=== PATIENT | male | born 1965 | race African-American/Black ===

== ENCOUNTER 2017-03-13 09:30 | Inpatient (IN) | payer MEDICAID, OTHER ==
[~2017-03-13] VITALS: Ht 182.9 cm; Wt 118.5 kg
[~2017-03-13 09:30] MED LIST: ASPI-664 PO; BENA20TA48 PO; LANT3I SC
[2017-03-13] MEDS ORDERED: ASPIRIN 81 MG TAB PO STA (09:33)
[2017-03-13] MEDS ORDERED: ONDANSETRON 4 MG INJ IV STA (09:58)
[2017-03-13] MEDS ORDERED: morphine 4 MG/ML VIAL IV STA (09:58)
[2017-03-13 10:08] VITALS: TEMP 98.6
[2017-03-13 10:19] LABS: ADD SCAN DIFF NO
--- NOTE | 2017-03-13 10:21 | RADRPT ---
PROCEDURE: Chest x-ray CLINICAL INDICATION: Chest pain TECHNIQUE: Chest single view COMPARISON: None FINDINGS: The heart is normal in size. The pulmonary vessels are normal in caliber. The lungs are clear. Th e costophrenic angles are sharp. The visualized bony thorax is unremarkable. IMPRESSION: No acute cardiopulmonary disease. RPTAT: HH .Jere Johnson MD, Date Time Electronically viewed and signed by .Jere Johnson MD, MD on 03/13/2017 10:20 .W/
[2017-03-13 10:24] LABS: BASOPHILS % 0.8 % (0.0-2.0); EOSINOPHILS # 0.1 10^3/ul (0.0-0.5); HEMATOCRIT 45.4 % (42.0-52.0); HEMOGLOBIN 15.7 g/dl (14.0-18.0); LYMPHOCYTES # 1.2 10^3/ul (0.8-2.9); LYMPHOCYTES % 23.9 % (15.0-51.0); MEAN CORPUSCULAR HEMOGLOBIN 27.7 pg (29.0-33.0); MEAN CORPUSCULAR HGB CONC 34.6 g/dl (32.0-37.0); MEAN CORPUSCULAR VOLUME 80.1 fl (82.0-101.0); MONOCYTE # 0.6 10^3/ul (0.3-0.9); MONOCYTES % 10.9 % (0.0-11.0); NEUTROPHIL # 3.1 10^3/ul (1.6-7.5); NEUTROPHILS % 62.2 % (39.0-77.0); PLATELET COUNT 244 10^3/UL (140-415); RED BLOOD COUNT 5.67 10^6/ul (4.70-6.10); RED CELL DISTRIBUTION WIDTH 12.6 % (11.5-14.5)
[2017-03-13 10:45] LABS: ANION GAP 18 (8-16); BLOOD UREA NITROGEN 43 mg/dl (7-20); CARBON DIOXIDE 21 mmol/L (21-31); CHLORIDE 97 mmol/L (97-110); CREATININE 1.56 mg/dl (0.61-1.24); POTASSIUM 5.4 mmol/L (3.5-5.1); SODIUM 131 mmol/L (135-144)
[2017-03-13 10:48] LABS: GLUCOSE 527 mg/dl (70-220)
[2017-03-13 10:50] LABS: INR 1.01; PROTIME 13.3 Sec (12.2-14.2)
[2017-03-13 10:51] LABS: PARTIAL THROMBOPLASTIN TIME 27.2 Sec (25.0-35.0)
[2017-03-13 10:54] LABS: D-DIMER 324.57 ng/ml (<460)
[2017-03-13 10:58] LABS: B-TYPE NATRIURETIC PEPTIDE < 11 PG/ML (0-125); TROPONIN-I < 0.012 ng/ml (0.00-0.12)
[2017-03-13] MEDS ORDERED: SOD CHLORIDE 0.9% 1,000 ML IV STA (11:21)
[2017-03-13] MEDS ORDERED: INSULIN LISPRO 100 UNIT/ML VIAL SC STA (11:21)
--- NOTE | 2017-03-13 12:23 | ERA ---
ER Documentation Chief Complaint Date/Time DATE: 03/13/17 TIME: 12:20 Chief Complaint SOB UPON AWAKING THIS AM HPI 51-year-old diabetic who presents the emergency room with shortness of breath. His EMS run was billed as a ST elevation myocardial infarction based on their EKG. The patient denies any chest pain. He describes several days of shortness of breath and dyspnea on exertion. He denies any chest pain during this timeframe. He denies any current chest pain. He does describe chronic diabetic neuropathy of bilateral lower extremities with persistent pain. No fevers chills cough or headache or neck pain. ROS All systems reviewed and are negative except as per history of present illness. Medications Home Meds Active Scripts Insulin Glargine* (Lantus*) 100 Unit/Ml Soln, 40 UNIT SC BID, #1 VIAL 2 Refills Prov:TYRONE DALEY MD 11/25/15 Reported Medications Aspirin (Low Dose Aspirin) 81 Mg Tablet.dr, 81 MG PO DAILY, #30 TAB 11/25/15 Benazepril Hcl* (Benazepril Hcl*) 20 Mg Tablet, 20 MG PO DAILY, #30 TAB 11/25/15 Allergies Allergies: Coded Allergies: No Known Allergy (Unverified , 03/13/17) PMhx/Soc Hx Miscellaneous Medical Probl: Yes (DM ) Hx Alcohol Use: No Hx Substance Use: No Hx Tobacco Use: No FmHx Family History: No diabetes Physical Exam Vitals Vital Signs Date Time Temp Pulse Resp B/P Pulse Ox O2 Delivery O2 Flow Rate FiO2 03/13/17 12:24 116 20 104/65 97 Room Air 03/13/17 10:08 98.6 107 23 111/86 100 Nasal Cannula 2.0 03/13/17 10:00 98.9 104 23 109/81 100 03/13/17 10:00 Simple Mask 2.0 03/13/17 10:00 Nasal Cannula 2 03/13/17 09:40 98.1 104 20 100/76 100 Physical Exam General: Well developed, well nourished, no acute distress Head: Normocephalic, atraumatic. Eyes: Pupils equally reactive, EOM intact ENT: Moist mucous membranes Neck: Supple, no lymphadenopathy Respiratory: Lungs clear bilaterally, no distress Cardiovascular: RRR, no murmurs, rubs, or gallops Abdominal: Soft, non-tender, non-distended, no peritoneal signs : Deferred MSK: No edema, no unilateral swelling, 5/5 strength Neurologic: Alert and oriented, moving all extremities, normal speech, no focal weakness, no cerebellar signs Skin: No rash Psych: Normal mood Result Diagram: 03/13/17 1012 03/13/17 1012 Results 24 hrs Laboratory Tests Test 03/13/17 10:12 03/13/17 11:55 White Blood Count 5.010^3/ul Red Blood Count 5.6710^6/ul Hemoglobin 15.7g/dl Hematocrit 45.4% Mean Corpuscular Volume 80.1fl Mean Corpuscular Hemoglobin 27.7pg Mean Corpuscular Hemoglobin Concent 34.6g/dl Red Cell Distribution Width 12.6% Platelet Count 68318^3/UL Mean Platelet Volume 10.0fl Neutrophils % 62.2% Lymphocytes % 23.9% Monocytes % 10.9% Eosinophils % 2.0% Basophils % 0.8% Nucleated Red Blood Cells % 0.0/100WBC Neutrophils # 3.110^3/ul Lymphocytes # 1.210^3/ul Monocytes # 0.610^3/ul Eosinophils # 0.110^3/ul Basophils # 0.010^3/ul Nucleated Red Blood Cells # 0.010^3/ul Prothrombin Time 13.3Sec Prothrombin Time Ratio 1.0 INR International Normalized Ratio 1.01 Activated Partial Thromboplast Time 27.2Sec D-Dimer 324.57ng/ml D-Dimer Comment Sodium Level 131mmol/L Potassium Level 5.4mmol/L Chloride Level 97mmol/L Carbon Dioxide Level 21mmol/L Anion Gap 18 Blood Urea Nitrogen 43mg/dl Creatinine 1.56mg/dl Glucose Level 527mg/dl Calcium Level 10.0mg/dl Troponin I < 0.012ng/ml B-Type Natriuretic Peptide < 11PG/ML Bedside Glucose > 595mg/dL Current Medications Medications (Trade) Dose Ordered Sig/Kenny Route PRN Reason Start Time Stop Time Status Last Admin Dose Admin Aspirin (Aspirin) 162 mg ONCE STAT PO 03/13/17 09:33 03/13/17 09:34 DC 03/13/17 09:52 Morphine Sulfate (morphine) 4 mg ONCE STAT IV 03/13/17 09:58 03/13/17 10:00 DC 03/13/17 11:32 Ondansetron HCl 4 mg 4 mg ONCE STAT IV 03/13/17 09:58 03/13/17 10:00 DC 03/13/17 11:32 Sodium Chloride (NS) 1,000 ml @ 1,000 mls/hr Q1H STAT IV 03/13/17 11:21 03/13/17 12:20 DC 03/13/17 12:20 Insulin Human Lispro (Humalog) 6 unit ONCE STAT SC 03/13/17 11:21 03/13/17 11:39 DC 03/13/17 12:18 Procedures/MDM EKG, MONITORS, & DIAGNOSTIC IMAGING: EKG: I reviewed and interpreted a 12-lead EKG. Rhythm: Normal sinus rhythm Ectopy: None Intervals: No abnormalities ST segments: No elevations or depressions T waves: No contiguous inversions Field EKG via EMS EKG: I reviewed and interpreted a 12-lead EKG. Rhythm: Normal sinus rhythm Ectopy: None Intervals: No abnormalities ST segments: No elevations or depressions T waves: No contiguous inversions Chest x-ray: I reviewed and interpreted a 1 view of the chest Mediastinum: No enlargement Cardiac silhouette: No cardiomegaly Airspace: Clear lung lundberg bilaterally without evidence of pneumothorax Bones: No evidence of fracture LAB INTERPRETATION: Hyperglycemia without diabetic ketoacidosis, anion gap less than 14, negative troponin MEDICAL DECISION MAKING: The patient presents with shortness of breath and dyspnea on exertion. Broad differential that includes CHF, ACS. Low concern for PE. The patient also has significant hyperglycemia without evidence of DKA, no anion gap acidosis. The patient's field EKG was interpreted by the machine as a STEMI, however on an evaluation the patient is not having chest pain at his EKG does not meet STEMI criteria. Repeat EKG indicated. The patient will benefit from evaluation for exertional shortness of breath including ACS rule out, inpatient hospitalization given his multiple risk factors. ER COURSE: The patient received aspirin via EMS. Aspirin completed here. He is resting comfortably. He was provided morphine for bilateral lower extremity pain that is consistent with his chronic peripheral neuropathy. Hyperglycemia without DKA , IV fluids provided Humalog subcutaneous provided. The patient is resting comfortably and chest pain-free. The patient will likely require hospitalization for further evaluation and rule out of ACS. I kept the patient and/or family informed of laboratory and diagnostic imaging results throughout the emergency room course. DISPOSITION PLAN: Telemetry admission to rule out ACS and treat hyperglycemia without DKA CONSULTATION: Accepting care team and consultations: I discussed the current laboratory data, diagnostic imaging and emergency care provided. Admitting team: Dr. Winchester Admitting team indication: Insurance directed Departure Diagnosis: Primary Impression: Shortness of breath Additional Impression: Hyperglycemia Condition: Stable DELFINA OSEI MD Mar 13, 2017 12:23
--- NOTE | 2017-03-13 14:08 | HP ---
Date/Time of Note Date/Time of Note DATE: 03/13/17 TIME: 14:08 Assessment/Plan VTE Prophylaxis VTE Prophylaxis Intervention: SCD's Lines/Catheters IV Catheter Type (from Nrsg): Saline Lock Assessment/Plan Assessment/Plan 51 yo M with pmhx DM2 obesity presents with 2 weeks of severe leg pain and 1 day of SOB in setting of significant hyperglycemia. SOB has now resolved, etiology unclear. #hyperglycemia: 2/2 physiologic stress v insufficient insulin dosing -cont IVFs -cont home lantus, + SSI #LE pain: d/dx includes PAD v neuropathy v rhabdo v other -check LE arterial studies -trial of Elavil -check CK #BEULAH; Cr 1.6, baseline unk -hold home acei -cont IVFs #hyperkalemia, hyponatremia: suspect lyte derangement 2/2 hyperglycemia -no T wave abns per ED note -cont IVFs #obesity: consider RD eval in AM prophx: SCDs discharge pending improvement in BGs and determination of etio of leg pain HPI/ROS Admit Date/Time Admit Date/Time Hx of Present Illness 51 yo M with pmhx DM2 on insulin, obesity presents with 1 day of SOB, 2 weeks of dizziness and progressive LE pain. Pt was seen at an OSH 2 weeks ago for dizziness, LE pain. At that time he was diagnosed with gastroenteritis/possible food poisoning and discharged with juan. This morning pt woke up and was very short of breath. Arrived at [facility] for breakfast but was too SOB to walk to his table. No chest pain. No nausea/vomiting/constipation. Pt denies any missed doses of his lantus but does note that he was recently changed from insulin vials to pens and isn't sure if the dose is the same. Also lost his glucometer. Re LE pain, states it has been present for 2 weeks. Reports burning/ hyperesthesia of both legs to the point where he is unable to stand 2/2 pain. States that his feet feel "like bricks" ROS 10pROS neg except as per HPI PMH/Family/Social Past Medical History Dm2, obesity Past Surgical History none Family History Significant Family History: other (obesity in several brothers) Social History lives in the community Exam/Review of Systems Vital Signs Vitals Vital Signs Date Time Temp Pulse Resp B/P Pulse Ox O2 Delivery O2 Flow Rate FiO2 03/13/17 12:24 116 20 104/65 97 Room Air 03/13/17 10:08 98.6 2.0 Exam Exam anxious, laying in bed EOMI MMM no gross thyromegaly no mrg lungs clear abd soft LEs: weakly palpable DP pulses bl feet, +rubor bl, +1 cm no rashes responds to questions appropriately Labs Result Diagram: 03/13/17 1012 03/13/17 1012 Medications Medications Current Medications Acetaminophen/ Hydrocodone Bitart ([place] (5/325)) 1 tab Q6H PRN PO MODERATE PAIN LEVEL 4-6; Start 03/13/17 at 14:30; Status UNV Enoxaparin Sodium (Lovenox) 40 mg DAILY SC ; Start 03/14/17 at 09:00; Status UNV Procedures Procedures CXR clear EKG per ER KAYLA FALCON MD Mar 13, 2017 14:08
[2017-03-13] MEDS ORDERED: ONDANSETRON 4 MG INJ IV PRN (14:30)
[2017-03-13] MEDS ORDERED: GLUCAGON 1 MG INJ IM PRN (14:30)
[2017-03-13] MEDS ORDERED: GLUCOSE GEL 15 GRAM TUBE PO PRN ×2 (14:30)
[2017-03-13] MEDS ORDERED: DEXTROSE 50% 50 ML SYRINGE IV PRN ×2 (14:30)
[2017-03-13] MEDS ORDERED: ACETAMINOPHEN 325 MG TAB PO PRN (14:30)
[2017-03-13] MEDS ORDERED: NACL 0.9% 3 ML SYG IV SCH (14:30)
[2017-03-13] MEDS ORDERED: GLUCOSE GEL 15 GRAM TUBE BUCCAL PRN (14:30)
[2017-03-13] MEDS: HYDROCODONE/APAP (5/325) TAB PO PRN (15:57)
[2017-03-13 17:07] LABS: CREATINE KINASE 57 IU/L (23-200)
[2017-03-13 17:28] LABS: TROPONIN-I < 0.012 ng/ml (0.00-0.12)
[2017-03-13 17:29] LABS: CK-MB 1.32 ng/ml (0.0-2.4)
[2017-03-13 18:41] LABS: MAGNESIUM 2.2 mg/dl (1.7-2.5); PHOSPHORUS 5.6 mg/dl (2.5-4.9)
[2017-03-13 19:00] VITALS: BMI 44.4
[2017-03-13] MEDS: SOD CHLORIDE 0.9% 1,000 ML IV SCH (20:01)
[2017-03-13] MEDS: INSULIN ASPART [NOVOLOG] 3 ML PEN SC SCH ×2 (20:07→21:39)
[2017-03-13 20:11] VITALS: PULSE 117
[2017-03-13] MEDS ORDERED: SOD CHLORIDE 0.9% 1,000 ML IV ONE ×2 (20:30→22:30)
[2017-03-13 20:37] VITALS: BP 94/57; RESP 20
[2017-03-13] MEDS ORDERED: INSULIN GLARGINE [LANtus] 3 ML PEN SC SCH (21:00)
[2017-03-13] MEDS: AMITRIPTYLINE 25 MG TAB PO SCH (21:00)
[2017-03-13 22:02] LABS: CREATINE KINASE 66 IU/L (23-200)
[2017-03-13] MEDS ORDERED: KETOROLAC 30 MG INJ IV STA (22:06)
[2017-03-13 22:16] LABS: CK-MB 1.43 ng/ml (0.0-2.4); TROPONIN-I < 0.012 ng/ml (0.00-0.12)
[2017-03-14] VITALS (17 sets, daily range): BP systolic 93–160; BP diastolic 56–100; PULSE 94–112; RESP 11–24; Ht 182.9 cm; Wt 118.5 kg
[2017-03-14] MEDS ORDERED: INSULIN ASPART [NOVOLOG] 3 ML PEN SC ONE
[2017-03-14] MEDS ORDERED: SOD CHLORIDE 0.9% 500 ML IV ONE
[2017-03-14] MEDS: SOD CHLORIDE 0.9% 1,000 ML IV SCH ×2 (01:37→03:13)
[2017-03-14] MEDS ORDERED: Regular insulin 100 Units/100 ml NS IV SCH ×2 (02:00)
[2017-03-14] MEDS ORDERED: POTASSIUM CHLORIDE 20 MEQ POWDER FOR ORAL SOLN PO PRN ×3 (03:00)
[2017-03-14] MEDS: morphine 4 MG/ML VIAL IV PRN ×5 (03:04→22:50)
[2017-03-14] MEDS ORDERED: DEXTROSE 5%-0.45% NACL 1,000 ML IV SCH (05:30)
[2017-03-14] MEDS ORDERED: DEXTROSE 5%-0.225% NACL 1,000 ML IV SCH (05:30)
[2017-03-14] MEDS: INSULIN ASPART [NOVOLOG] 3 ML PEN SC SCH ×6 (06:13→21:00)
[2017-03-14 06:16] LABS: ADD SCAN DIFF NO
[2017-03-14 06:23] LABS: BASOPHILS % 0.7 % (0.0-2.0); EOSINOPHILS # 0.2 10^3/ul (0.0-0.5); EOSINOPHILS % 5.3 % (0.0-7.0); HEMATOCRIT 41.4 % (42.0-52.0); LYMPHOCYTES # 1.3 10^3/ul (0.8-2.9); LYMPHOCYTES % 32.2 % (15.0-51.0); MEAN CORPUSCULAR HEMOGLOBIN 27.5 pg (29.0-33.0); MEAN CORPUSCULAR HGB CONC 33.8 g/dl (32.0-37.0); MEAN CORPUSCULAR VOLUME 81.3 fl (82.0-101.0); MEAN PLATELET VOLUME 9.8 fl (7.4-10.4); MONOCYTE # 0.5 10^3/ul (0.3-0.9); MONOCYTES % 13.1 % (0.0-11.0); NEUTROPHILS % 48.5 % (39.0-77.0); PLATELET COUNT 226 10^3/UL (140-415); RED BLOOD COUNT 5.09 10^6/ul (4.70-6.10); RED CELL DISTRIBUTION WIDTH 12.9 % (11.5-14.5); WHITE BLOOD COUNT 4.1 10^3/ul (4.8-10.8)
[2017-03-14 07:01] LABS: MAGNESIUM 2.1 mg/dl (1.7-2.5); PHOSPHORUS 5.5 mg/dl (2.5-4.9)
[2017-03-14 07:13] LABS: ALBUMIN 3.5 g/dl (3.3-4.9); ALBUMIN/GLOBULIN RATIO 1.45; BILIRUBIN,INDIRECT 0.5 mg/dl (0-1.1); BILIRUBIN,TOTAL 0.5 mg/dl (0.2-1.3); CALCIUM 9.1 mg/dl (8.4-10.2); CHOL/HDL RATIO 2.8 RATIO; CREATININE 1.57 mg/dl (0.61-1.24); POTASSIUM 4.7 mmol/L (3.5-5.1); TOTAL PROTEIN 5.9 g/dl (6.1-8.1)
[2017-03-14] MEDS: ASPIRIN (EC) 81 MG TAB PO SCH (09:13)
[2017-03-14] MEDS: ENOXAPARIN 40 MG/0.4 ML SYG SC SCH (09:16)
[2017-03-14] MEDS: INSULIN GLARGINE [LANtus] 3 ML PEN SC SCH ×2 (09:17→20:35)
--- NOTE | 2017-03-14 09:19 | PN ---
Date/Time of Note Date/Time of Note DATE: 03/14/17 TIME: 09:18 Assessment/Plan VTE Prophylaxis VTE Prophylaxis Intervention: SCD's Lines/Catheters IV Catheter Type (from Nrsg): Peripheral IV Urinary Cath still in place: No Assessment/Plan Assessment/Plan 51 yo M with pmhx DM2 obesity presents with 2 weeks of severe leg pain and 1 day of SOB in setting of significant hyperglycemia. SOB has now resolved, etiology unclear. #hyperglycemia: suspect 2/2 insufficient insulin dosing -inc insulin dosing as per DM RN Notes #LE pain: d/dx includes PAD v neuropathy v rhabdo v other -check LE arterial studies -trial of Elavil CK nl #BEULAH; Cr 1.6, baseline unk -resume acei -check UA, urine p/c, FeNa #hyperkalemia, hyponatremia: RESOLVED #obesity: RD eval ordered prophx: SCDs discharge pending improvement in BGs and determination of etio of leg pain transfer out of ICU Subjective 24 Hr Interval Summary Free Text/Dictation Pt transferred to ICU overnight for hyperglycemia. After a few hours on insulin drip, BG improved from 400s to 100s. Pt hungry. Hasn't yet tried to get out of bed. Exam/Review of Systems Vital Signs Vitals Vital Signs Date Time Temp Pulse Resp B/P Pulse Ox O2 Delivery O2 Flow Rate FiO2 03/14/17 07:00 98 15 150/89 95 Room Air 03/14/17 04:00 98.2 03/13/17 10:08 2.0 Intake and Output 03/13/17 03/13/17 03/14/17 15:00 23:00 07:00 Intake Total 374 ml Output Total 525 ml Balance -151 ml Exam nad, laying in bed no mrg lungs clear abd soft no rashes Results Result Diagram: 03/14/17 0531 03/14/17 0531 Results 24 hrs Laboratory Tests Test 03/13/17 10:12 03/13/17 11:55 03/13/17 14:15 03/13/17 16:30 White Blood Count 5.0 Red Blood Count 5.67 Hemoglobin 15.7 Hematocrit 45.4 Mean Corpuscular Volume 80.1 L Mean Corpuscular Hemoglobin 27.7 L Mean Corpuscular Hemoglobin Concent 34.6 Red Cell Distribution Width 12.6 Platelet Count 244 Mean Platelet Volume 10.0 Neutrophils % 62.2 Lymphocytes % 23.9 Monocytes % 10.9 Eosinophils % 2.0 Basophils % 0.8 Nucleated Red Blood Cells % 0.0 Neutrophils # 3.1 Lymphocytes # 1.2 Monocytes # 0.6 Eosinophils # 0.1 Basophils # 0.0 Nucleated Red Blood Cells # 0.0 Prothrombin Time 13.3 Prothrombin Time Ratio 1.0 INR International Normalized Ratio 1.01 Activated Partial Thromboplast Time 27.2 D-Dimer 324.57 D-Dimer Comment Sodium Level 131 L Potassium Level 5.4 H Chloride Level 97 Carbon Dioxide Level 21 Anion Gap 18 H Blood Urea Nitrogen 43 H Creatinine 1.56 H Glucose Level 527 *H Calcium Level 10.0 Troponin I < 0.012 < 0.012 B-Type Natriuretic Peptide < 11 Bedside Glucose > 595 *H 446 *H Phosphorus Level 5.6 H Magnesium Level 2.2 Creatine Kinase 57 Creatine Kinase Index 2.3 Creatinine Kinase MB (Mass) 1.32 Test 03/13/17 19:39 03/13/17 19:57 03/13/17 20:00 03/13/17 21:30 Bedside Glucose 466 *H 391 H Glucose Level 486 *H Hemoglobin A1c Creatine Kinase 66 Creatine Kinase Index 2.2 Creatinine Kinase MB (Mass) 1.43 Troponin I < 0.012 Test 03/13/17 23:50 03/14/17 01:36 03/14/17 03:07 03/14/17 04:06 Bedside Glucose 404 *H 401 *H 358 H 263 H Test 03/14/17 04:59 03/14/17 05:31 03/14/17 06:10 03/14/17 07:20 Bedside Glucose 195 152 167 White Blood Count 4.1 L Red Blood Count 5.09 Hemoglobin 14.0 Hematocrit 41.4 L Mean Corpuscular Volume 81.3 L Mean Corpuscular Hemoglobin 27.5 L Mean Corpuscular Hemoglobin Concent 33.8 Red Cell Distribution Width 12.9 Platelet Count 226 Mean Platelet Volume 9.8 Neutrophils % 48.5 Lymphocytes % 32.2 Monocytes % 13.1 H Eosinophils % 5.3 Basophils % 0.7 Nucleated Red Blood Cells % 0.0 Neutrophils # 2.0 Lymphocytes # 1.3 Monocytes # 0.5 Eosinophils # 0.2 Basophils # 0.0 Nucleated Red Blood Cells # 0.0 Sodium Level 142 Potassium Level 4.7 Chloride Level 109 # Carbon Dioxide Level 22 Anion Gap 16 Blood Urea Nitrogen 44 H Creatinine 1.57 H Glucose Level 147 # Hemoglobin A1c Calcium Level 9.1 Phosphorus Level 5.5 H Magnesium Level 2.1 Total Bilirubin 0.5 Direct Bilirubin 0.00 Indirect Bilirubin 0.5 Aspartate Amino Transf (AST/SGOT) 26 Alanine Aminotransferase (ALT/SGPT) 50 Alkaline Phosphatase 62 Total Protein 5.9 L Albumin 3.5 Globulin 2.40 Albumin/Globulin Ratio 1.45 Triglycerides Level 95 Cholesterol Level 76 L LDL Cholesterol, Calculated 30 HDL Cholesterol 27 L Cholesterol/HDL Ratio 2.8 Test 03/14/17 08:00 03/14/17 09:13 Bedside Glucose 162 166 Medications Medications Current Medications Acetaminophen/ Hydrocodone Bitart ([place] (5/325)) 1 tab Q6H PRN PO MODERATE PAIN LEVEL 4-6 Last administered on 03/13/17 15:57; Admin Dose 1 TAB; Start at 14:30 Enoxaparin Sodium (Lovenox) 40 mg DAILY SC Last administered on 03/14/17 09:16 ; Admin Dose 40 MG; Start 03/14/17 at 09:00 Aspirin (Halfprin) 81 mg DAILY PO Last administered on 03/14/17 09:13; Admin Dose 81 MG; Start 03/14/17 at 09:00 Miscellaneous Information 1 ea NOTE XX ; Start 03/13/17 at 14:30 Glucose (Glutose) 15 gm Q15M PRN PO DECREASED GLUCOSE; Start 03/13/17 at 14:30 Glucose (Glutose) 22.5 gm Q15M PRN PO DECREASED GLUCOSE; Start 03/13/17 at 14: 30 Dextrose (D50w Syringe) 25 ml Q15M PRN IV DECREASED GLUCOSE; Start 03/13/17 at 14:30 Dextrose (D50w Syringe) 50 ml Q15M PRN IV DECREASED GLUCOSE; Start 03/13/17 at 14:30 Glucagon (Glucagen) 1 mg Q15M PRN IM DECREASED GLUCOSE; Start 03/13/17 at 14:30 Glucose (Glutose) 15 gm Q15M PRN BUCCAL DECREASED GLUCOSE; Start 03/13/17 at 14 :30 Amitriptyline HCl (Elavil) 25 mg QHS PO ; Start 03/13/17 at 21:00 Dextrose (D50w Syringe) 50 ml PRN PRN IV DECREASED GLUCOSE; Start 03/14/17 at 02:00 Morphine Sulfate (morphine) 4 mg Q4H PRN IV PAIN Last administered on 07:52; Admin Dose 4 MG; Start 03/14/17 at 03:00 Insulin Glargine (Lantus) 50 unit BID SC Last administered on 03/14/17 09:17; Admin Dose 50 UNIT; Start 03/14/17 at 09:00 Benazepril HCl (Lotensin) 20 mg DAILY PO ; Start 03/14/17 at 09:30 KAYLA LIEBERMAN MD Mar 14, 2017 09:19 KAYLA LIEBERMAN MD Mar 14, 2017 09:19
[2017-03-14] MEDS: BENAZEPRIL 20 MG TAB PO SCH (10:42)
--- NOTE | 2017-03-14 14:22 | RADRPT ---
PROCEDURE: US bilateral lower extremity arteries. CLINICAL INDICATION: Bilateral leg pain. Claudication that interferes significantly with the alexa ent's lifestyle. TECHNIQUE: Multiple longitudinal and transverse images of the bilateral lower extremity arteries w ere obtained with crowder scale, pulsed Doppler, and color Doppler imaging. COMPARISON: No prior studies are available for comparison. FINDINGS: Right WELT WHEELER:94 cm/sec PSFA:77 cm/sec MSFA:76 cm/sec DSFA:51 cm/sec POP:44 cm/sec TELESALES AGENT:58 cm/sec DPA:27 cm/sec Left WELT WHEELER:85 cm/sec PSFA:80 cm/sec MSFA:71 cm/sec DSFA:65 cm/sec POP:49 cm/sec TELESALES AGENT:84 cm/sec DPA:38 cm/sec The right ankle-brachial index is 0.98 and the left ankle-brachial index is 0.98. There is normal triphasic flow throughout bilaterally. There is no plaque, stenosis, or occlusion. IMPRESSION: 1. Normal bilateral lower extremity arterial Doppler. RPTAT: QQ .Juan Blas MD, Date Time Electronically viewed and signed by .Juan Blas MD, on 03/14/2017 14:21 .R/
[2017-03-14] MEDS: HYDROCODONE/APAP (5/325) TAB PO PRN (20:05)
[2017-03-14] MEDS: AMITRIPTYLINE 25 MG TAB PO SCH (21:42)
[2017-03-15] MEDS: morphine 4 MG/ML VIAL IV PRN ×4 (05:03→19:52)
[2017-03-15 06:09] LABS: ADD UMIC NO; UR ASCORBIC ACID NEGATIVE (NEGATIVE); UR BILIRUBIN (Dip) NEGATIVE (NEGATIVE); UR BLOOD (Dip) NEGATIVE (NEGATIVE); UR CLARITY CLEAR (CLEAR); UR COLOR STRAW (YELLOW); UR GLUCOSE (Dip) 2+ mg/dL (NEGATIVE); UR KETONES (Dip) NEGATIVE (NEGATIVE); UR LEUKOCYTE ESTERASE (Dip) NEGATIVE Leu/ul (NEGATIVE); UR NITRITE (Dip) NEGATIVE (NEGATIVE); UR SPECIFIC GRAVITY (Dip) 1.013 (1.003-1.030); UR TOTAL PROTEIN (Dip) NEGATIVE (NEGATIVE); UR UROBILINOGEN (Dip) NEGATIVE (NEGATIVE)
[2017-03-15 06:37] LABS: PROTEIN/CREAT RATIO 0.14 RATIO
[2017-03-15 07:06] LABS: CALCIUM 9.2 mg/dl (8.4-10.2); MAGNESIUM 1.8 mg/dl (1.7-2.5); PHOSPHORUS 4.3 mg/dl (2.5-4.9); POTASSIUM 4.6 mmol/L (3.5-5.1)
[2017-03-15] MEDS: INSULIN ASPART [NOVOLOG] 3 ML PEN SC SCH ×7 (08:00→20:40)
[2017-03-15] MEDS: HYDROCODONE/APAP (5/325) TAB PO PRN ×2 (08:10→17:48)
[2017-03-15] MEDS: BENAZEPRIL 20 MG TAB PO SCH (08:11)
[2017-03-15] MEDS: ENOXAPARIN 40 MG/0.4 ML SYG SC SCH (08:11)
[2017-03-15] MEDS: ASPIRIN (EC) 81 MG TAB PO SCH (08:11)
[2017-03-15 08:12] VITALS: BP 129/74; RESP 20
[2017-03-15] MEDS: INSULIN GLARGINE [LANtus] 3 ML PEN SC SCH ×2 (08:13→20:42)
--- NOTE | 2017-03-15 10:26 | PN ---
Date/Time of Note Date/Time of Note DATE: 03/15/17 TIME: 10:26 Assessment/Plan VTE Prophylaxis VTE Prophylaxis Intervention: SCD's Lines/Catheters IV Catheter Type (from Nrsg): Saline Lock Urinary Cath still in place: No Assessment/Plan Assessment/Plan 51 yo M with pmhx DM2 obesity presents with 2 weeks of severe leg pain and 1 day of SOB in setting of significant hyperglycemia. SOB has now resolved, etiology unclear. #hyperglycemia: suspect 2/2 insufficient insulin dosing -cont current DM regimen #LE pain: d/dx includes PAD v neuropathy v rhabdo v other-->CK and arterial studies nl -inc elavil -PT eval -check b12/tsh for additional causes of neuropathic pain #BEULAH; RESOLVED -UA with non nephrotic range proteinuria-->resumed acei #hyperkalemia, hyponatremia: RESOLVED #obesity: RD eval prophx: SCDs discharge pending improvement in BGs and determination of etio of leg pain Subjective 24 Hr Interval Summary Free Text/Dictation Pt still with leg pain. States he had tried MMJ previously but all that works is oxycodone Exam/Review of Systems Vital Signs Vitals Vital Signs Date Time Temp Pulse Resp B/P Pulse Ox O2 Delivery O2 Flow Rate FiO2 03/15/17 08:12 98.5 115 20 129/74 99 03/14/17 11:00 Room Air 03/13/17 10:08 2.0 Intake and Output 03/14/17 03/14/17 03/15/17 15:00 23:00 07:00 Intake Total 1301 ml 1200 ml 500 ml Output Total 575 ml 300 ml 650 ml Balance 726 ml 900 ml -150 ml Exam nad, laying in bed no mrg lungs clear abd soft no rashes Results Result Diagram: 03/14/17 0531 03/15/17 0447 Results 24 hrs Laboratory Tests Test 03/14/17 10:43 03/14/17 12:21 03/14/17 17:36 03/14/17 20:18 Bedside Glucose 218 182 164 133 Test 03/14/17 22:48 03/15/17 04:20 03/15/17 04:22 03/15/17 04:47 Bedside Glucose 161 104 Urine Color STRAW Urine Clarity CLEAR Urine pH 5.0 Urine Specific [place] 1.013 Urine Ketones NEGATIVE Urine Nitrite NEGATIVE Urine Bilirubin NEGATIVE Urine Urobilinogen NEGATIVE Urine Leukocyte Esterase NEGATIVE Urine Hemoglobin NEGATIVE Urine Random Creatinine 54.14 Urine Random Sodium 79 Urine Protein/Creatinine Ratio 0.14 Urine Glucose 2+ H Urine Total Protein 8.0 Sodium Level 140 Potassium Level 4.6 Chloride Level 106 Carbon Dioxide Level 25 Anion Gap 14 Blood Urea Nitrogen 30 #H Creatinine 1.00 Glucose Level 136 Calcium Level 9.2 Phosphorus Level 4.3 Magnesium Level 1.8 Test 03/15/17 07:42 Bedside Glucose 112 Medications Medications Current Medications Acetaminophen/ Hydrocodone Bitart ([place] (5/325)) 1 tab Q6H PRN PO MODERATE PAIN LEVEL 4-6 Last administered on 03/15/17 08:10; Admin Dose 1 TAB; Start at 14:30 Enoxaparin Sodium (Lovenox) 40 mg DAILY SC Last administered on 03/15/17 08:11 ; Admin Dose 40 MG; Start 03/14/17 at 09:00 Aspirin (Halfprin) 81 mg DAILY PO Last administered on 03/15/17 08:11; Admin Dose 81 MG; Start 03/14/17 at 09:00 Miscellaneous Information 1 ea NOTE XX ; Start 03/13/17 at 14:30 Glucose (Glutose) 15 gm Q15M PRN PO DECREASED GLUCOSE; Start 03/13/17 at 14:30 Glucose (Glutose) 22.5 gm Q15M PRN PO DECREASED GLUCOSE; Start 03/13/17 at 14: 30 Dextrose (D50w Syringe) 25 ml Q15M PRN IV DECREASED GLUCOSE; Start 03/13/17 at 14:30 Dextrose (D50w Syringe) 50 ml Q15M PRN IV DECREASED GLUCOSE; Start 03/13/17 at 14:30 Glucagon (Glucagen) 1 mg Q15M PRN IM DECREASED GLUCOSE; Start 03/13/17 at 14:30 Glucose (Glutose) 15 gm Q15M PRN BUCCAL DECREASED GLUCOSE; Start 03/13/17 at 14 :30 Amitriptyline HCl (Elavil) 25 mg QHS PO Last administered on 03/14/17 21:42; Admin Dose 25 MG; Start 03/13/17 at 21:00 Dextrose (D50w Syringe) 50 ml PRN PRN IV DECREASED GLUCOSE; Start 03/14/17 at 02:00 Morphine Sulfate (morphine) 4 mg Q4H PRN IV PAIN Last administered on 09:20; Admin Dose 4 MG; Start 03/14/17 at 03:00 Insulin Glargine (Lantus) 50 unit BID SC Last administered on 03/15/17 08:13; Admin Dose 50 UNIT; Start 03/14/17 at 09:00 Benazepril HCl (Lotensin) 20 mg DAILY PO Last administered on 03/15/17 08:11; Admin Dose 20 MG; Start 03/14/17 at 09:30 Procedures Procedures arterial studies LEs KAYLA Dias MD Mar 15, 2017 10:26
[2017-03-15 15:00] LABS: THYROID STIMULATING HORMONE 2.54 MIU/L (0.465-4.680)
[2017-03-15 20:33] VITALS: BP 129/89; RESP 19
[2017-03-15] MEDS ORDERED: AMITRIPTYLINE 25 MG TAB PO SCH (21:00)
[2017-03-15] MEDS ORDERED: AMITRIPTYLINE 50 MG TAB PO SCH (21:00)
[2017-03-16] MEDS: morphine 4 MG/ML VIAL IV PRN ×2 (00:22→07:44)
[2017-03-16 08:07] VITALS: BP 112/66; RESP 16
[2017-03-16] MEDS: INSULIN ASPART [NOVOLOG] 3 ML PEN SC SCH ×4 (08:53→12:25)
[2017-03-16] MEDS: INSULIN GLARGINE [LANtus] 3 ML PEN SC SCH (08:55)
[2017-03-16] MEDS: ENOXAPARIN 40 MG/0.4 ML SYG SC SCH (08:56)
[2017-03-16] MEDS: ASPIRIN (EC) 81 MG TAB PO SCH (08:57)
[2017-03-16] MEDS: BENAZEPRIL 20 MG TAB PO SCH (08:57)
[2017-03-16] MEDS: HYDROCODONE/APAP (5/325) TAB PO PRN (09:06)
[2017-03-16] MEDS ORDERED: NOVO3I SC (11:35)
[2017-03-16] MEDS ORDERED: HYDR-3498 PO (11:35)
[2017-03-16] MEDS ORDERED: AMIT50TA3 PO (11:35)
[2017-03-16] MEDS ORDERED: LANT3I SC (11:35)
--- NOTE | 2017-03-16 11:42 | PDOCDIS ---
Discharge Instructions CONDITION Patient Condition: Stable HOME CARE INSTRUCTIONS: Special Diet: 1800 ADA calorie diet FOLLOW UP/APPOINTMENTS Follow-up Plan Please check your blood sugars as directed and follow up with your regular doctor this week to discuss your leg pain and your diabetes KAYLA LIEBERMAN MD Mar 16, 2017 11:41
--- NOTE | 2017-03-16 11:43 | DS ---
Date/Time of Note Date/Time of Note DATE: 03/16/17 TIME: 11:42 Discharge Summary Admission/Discharge Info Admit Date/Time Mar 13, 2017 at 14:01 Discharge Date/Time Discharge Diagnosis hyperglycemia, leg pain Patient Condition: Good Consults none Procedures 6.27 LE arterial assessment IMPRESSION: 1. Normal bilateral lower extremity arterial Doppler. LDL 30 a1c still in process at time of discharge Hx of Present Illness 51 yo M with pmhx DM2 on insulin, obesity presents with 1 day of SOB, 2 weeks of dizziness and progressive LE pain. Pt was seen at an OSH 2 weeks ago for dizziness, LE pain. At that time he was diagnosed with gastroenteritis/possible food poisoning and discharged with zofran and norco. This morning pt woke up and was very short of breath. Arrived at [facility] for breakfast but was too SOB to walk to his table. No chest pain. No nausea/vomiting/constipation. Pt denies any missed doses of his lantus but does note that he was recently changed from insulin vials to pens and isn't sure if the dose is the same. Also lost his glucometer. Re LE pain, states it has been present for 2 weeks. Reports burning/ hyperesthesia of both legs to the point where he is unable to stand 2/2 pain. States that his feet feel "like bricks Hospital Course 51 yo M with poorly controlled DM presented with severe leg pain. BGs noted to be quite high on admission, pt required brief stay in the ICU for insulin drip, transitioned within 1 day to subQ insulin. Re pt's leg pain, suspect diabetic neuropathy in origin. Arterial studies without evidence of PAD as noted above. Pt with occ lightheadedness with standing, suspect autonomic neuropathy from longstanding DM. Pt rx'ed new glucometer at discharge Pt also received much diabetic teaching from [facility] Pt to f/u with PCP for further eval of LE pain Home Meds Active Scripts Insulin Aspart* (Novolog Insulin Pen*) 100 Unit/Ml Soln, 15 UNIT SC WITH MEALS for 7 Days, #1 VIAL Prov:KAYLA LIEBERMAN MD 03/16/17 Insulin Glargine* (Lantus*) 100 Unit/Ml Soln, 50 UNIT SC BID for 7 Days, #1 VIAL Prov:KAYLA LIEBERMAN MD 03/16/17 Amitriptyline Hcl* (Amitriptyline Hcl*) 50 Mg Tablet, 50 MG PO HS for 7 Days, # 7 TAB Prov:KAYLA LIEBERMAN MD 03/16/17 Insulin Glargine* (Lantus*) 100 Unit/Ml Soln, 40 UNIT SC BID, #1 VIAL 2 Refills Prov:TYRONE DALEY MD 11/25/15 Reported Medications Aspirin (Low Dose Aspirin) 81 Mg Tablet.dr, 81 MG PO DAILY, #30 TAB 11/25/15 Benazepril Hcl* (Benazepril Hcl*) 20 Mg Tablet, 20 MG PO DAILY, #30 TAB 11/25/15 Follow-up Plan f/u with PCP within 5 days for further evaluation of blood sugars and leg pain Primary Care Provider Ryder Tamayo MD Time spent on discharge: > 30 minutes Pending Labs Laboratory Tests Test 03/15/17 11:47 03/15/17 17:05 03/15/17 19:56 03/16/17 08:39 Bedside Glucose 97mg/dL (70-220) 139mg/dL (70-220) 81mg/dL (70-220) 259mg/dL (70-220) Test 03/16/17 10:17 Lab Scanned Report REFERENCE [id number] KAYLA LIEBERMAN MD Mar 16, 2017 11:43
== END 2017-03-16 14:30 | disposition home or self-care (01) | DRG 638 ==
LOC: E/R 09:30 → MS4 14:01 → PP2 19:37 → ICU 03-14 02:48 → PP2 03-14 13:23
PROVIDERS: ADMIT Internal Medicine; ATTEND Internal Medicine
DX: E11.65 Type 2 diabetes mellitus with hyperglycemia (principal); N17.9 Acute kidney failure, unspecified; E87.1 Hypo-osmolality and hyponatremia; E87.5 Hyperkalemia; R20.3 Hyperesthesia; M79.605 Pain in left leg; M79.604 Pain in right leg; E66.9 Obesity, unspecified; Z68.35 Body mass index [BMI] 35.0-35.9, adult; Z79.4 Long term (current) use of insulin
CPT/HCPCS: 71010; 80048; 80053; 80061; 81003; 82550; 82553; 82570; 82607; 82947; 82962; 83036; 83735; 83880; 84100; 84300; 84443; 84484; 85025; 85378; 85610; 85730; 87081; 93005; 93922; 96372; 96374; 96375; 97161; J1650; J1815; J1885; J2270; J2405; J7030; J7040; J7042